=== PATIENT | male | born 2000 | race Hispanic/Latino ===

== ENCOUNTER 2024-10-03 01:44 | Emergency (ER) | payer BC, SELFPAY ==
[2024-10-03] MEDS ORDERED: Ondansetron PF 4 MG/2 ML Vial ONE (01:52)
== END 2024-10-03 03:29 | disposition home or self-care (01) ==
LOC: CSHERS 01:44
DX: R11.2 Nausea with vomiting, unspecified (principal); R19.7 Diarrhea, unspecified
CPT/HCPCS: 96361; 96374; J2405